=== PATIENT | female | born 1965 | race Caucasian/White ===

== ENCOUNTER 2016-08-12 18:37 | Emergency (ER) | payer OTHER ==
[~2016-08-12] VITALS: Ht 160 cm; Wt 61.4 kg
[~2016-08-12 18:37] MED LIST: ATIVAN1 MG PO; Colace PO; DILAUDID2 MG PO; Dulcolax PO; Ecotrin PO; KlonoPIN PO; LEVOTHYROXINE50 MCG PO; Levothroid,Synthroid PO; MELOXICAM15 MG PO; Maalox, Mylanta PO; OMEPRAZOLE20 MG PO; PriLOSEC PO; Senokot,Sennagen PO; ULTRAM50 MG PO; ZITHROMAX Z-PA250 MG PO; oxyCODONE PO
[2016-08-12 20:27] VITALS: BP 155/85
== END 2016-08-12 20:28 | disposition home or self-care (01) ==
LOC: EME 18:37
DX: S91.311A Laceration without foreign body, right foot, initial encounter (principal); Z23 Encounter for immunization; W26.0XXA Contact with knife, initial encounter; Z88.3 Allergy status to other anti-infective agents
CPT/HCPCS: 99281; 99284

== ENCOUNTER 2016-08-21 18:16 | Emergency (ER) | payer OTHER ==
[~2016-08-21] VITALS: Ht 160 cm; Wt 61.3 kg
[2016-08-21 19:34] LABS: MCH 30.8 PG (29.0-34.0); MCHC 34.1 G/DL (30.0-36.0); MCV 90.5 FL (83-99); MEAN PLAT.VOLUME 9.5 uM^3 (9.5-12.4); PLATELET COUNT 383 K/uL (156-360); RBC DIS.WIDTH-CV 13.2 % (11.8-14.6); RED BLOOD COUNT 4.09 M/uL (3.80-5.20); WHITE BLOOD COUNT 9.9 K/uL (4.1-10.2)
[2016-08-21 19:52] LABS: CHLORIDE 106 mEq/L (99-109); POTASSIUM 3.8 mEq/L (3.7-5.4); SODIUM 138 mEq/L (136-147)
[2016-08-21 19:53] LABS: GLUCOSE 115 mg/dL (70-99)
[2016-08-21 19:55] LABS: ANION GAP 7 MEQ/L (2-14)
[2016-08-21 19:57] LABS: GFR ESTIMATE (CALCULATED) > 59 mL/min/; TROP-I INTERPRETATION NEGATIVE; TROPONIN-I 0.01 ng/mL (0.0-0.30)
[2016-08-21 19:58] LABS: UREA NITROGEN (BUN) 16 mg/dL (9-23)
[2016-08-21 20:11] LABS: MAGNESIUM 2.2 mg/dL (1.3-2.7)
[2016-08-21 21:55] LABS: TROP-I INTERPRETATION NEGATIVE; TROPONIN-I < 0.01 ng/mL (0.0-0.30)
[2016-08-21 23:08] VITALS: BP 156/81
== END 2016-08-21 23:11 | disposition home or self-care (01) ==
LOC: EME 18:16
PROVIDERS: Physician Assistant
DX: R07.89 Other chest pain (principal); F43.9 Reaction to severe stress, unspecified
CPT/HCPCS: 71020; 80048; 83735; 84484; 85027; 93005; 99281; 99285